=== PATIENT | male | born 1950 | race Caucasian/White ===

== ENCOUNTER 2018-03-31 23:28 | Inpatient (IN) | payer OTHER ==
[~2018-03-31] VITALS: Ht 172.7 cm; Wt 74.1 kg
[2018-04-01 00:28] LABS: BASOPHIL (%) 0.2 % (0-1); EOSINOPHIL (%) 0 % (0-5); HEMATOCRIT 34.2 % (38.0-50.0); IMMATURE GRANULOCYTE (%) 1.2 % (0.0-0.7); LYMPHOCYTE (%) 2.4 % (15-42); LYMPHOCYTE COUNT 0.5 K/uL (1.0-2.8); MCH 30.8 PG (29.0-34.0); MCHC 35.1 G/DL (30.0-36.0); MCV 87.9 FL (86-99); MONOCYTE (%) 9.1 % (3-12); MONOCYTE COUNT 1.7 K/uL (0-0.8); NEUTROPHIL (%) 87.1 % (45-76); NEUTROPHIL COUNT 16.6 K/uL (1.8-6.4); PLATELET COUNT 297 K/uL (156-360); RBC DIS.WIDTH-CV 12.4 % (11.8-14.6); RBC DIS.WIDTH-SD 39.8 % (39-53); RED BLOOD COUNT 3.89 M/uL (4.00-5.50)
[2018-04-01 00:56] LABS: TROP-I INTERPRETATION NEGATIVE; TROPONIN-I 0.03 ng/mL (0.0-0.30)
[2018-04-01 01:01] LABS: ALBUMIN 3.6 g/dL (3.2-4.8); CHLORIDE 99 mEq/L (99-109); POTASSIUM 3.6 mEq/L (3.7-5.4); SODIUM 132 mEq/L (136-147)
[2018-04-01 01:04] LABS: GLUCOSE 225 mg/dL (70-99); TOTAL PROTEIN 7.1 g/dL (6.4-8.3)
[2018-04-01 01:07] LABS: ALKALINE PHOSPHATASE 94 IU/L (3-129); CREATININE 1.5 mg/dL (0.6-1.3); GFR ESTIMATE (CALCULATED) 49 mL/min/ (58.99-99999)
[2018-04-01 01:08] LABS: UREA NITROGEN (BUN) 33 mg/dL (9-23)
[2018-04-01 01:09] LABS: AST (GOT) 31 IU/L (2-34); DIRECT BILIRUBIN 0.5 mg/dL (0.0-0.3)
[2018-04-01 01:10] LABS: ALT (GPT) 14 IU/L (3-49)
[2018-04-01 01:11] LABS: LIPASE 9 U/L (1.0-51.0)
[2018-04-01] MEDS ORDERED: METFORMIN HCL500 MG PO (01:56)
[2018-04-01] MEDS ORDERED: VASOTEC20 MG PO (01:57)
[2018-04-01] MEDS ORDERED: NORVASC5 MG PO (01:57)
[2018-04-01] MEDS ORDERED: TYLENOL ARTHRI650 MG PO (01:59)
[2018-04-01] MEDS ORDERED: SNAP INSULIN P1 EACH MC (02:00)
[2018-04-01 05:49] VITALS: BP 167/79
[2018-04-01 06:51] LABS: APPEARANCE CLOUDY ((CLEAR)); BILIRUBIN NEGATIVE; BLOOD LARGE; COLOR YELLOW ((YELLOW)); GLUCOSE (STRIP) NEGATIVE; KETONES NEGATIVE; LEUKOCYTES NEGATIVE; NITRITE NEGATIVE; PROTEIN (STRIP) 30; SPECIFIC GRAVITY 1.014 (1.000-1.030); UROBILINOGEN 0.2 MG/DL (0.2-1.0)
[2018-04-01 07:04] LABS: BACTERIA RARE /HPF; EPITHELIAL CELLS RARE /HPF; MUCUS TRACE /LPF; UCUL ADDED? NO; WHITE BLOOD CELLS 0-5 /HPF (0-5)
[2018-04-01 07:06] LABS: HEMATOCRIT 36.4 % (38.0-50.0); MCH 29.6 PG (29.0-34.0); MCV 89.9 FL (86-99); PLATELET COUNT 286 K/uL (156-360); RBC DIS.WIDTH-CV 12.3 % (11.8-14.6); RBC DIS.WIDTH-SD 40.4 % (39-53); RED BLOOD COUNT 4.05 M/uL (4.00-5.50); WHITE BLOOD COUNT 14.2 K/uL (4.1-10.2)
[2018-04-01 07:32] LABS: CHLORIDE 103 MEQ/L (99-109); CREATININE 1.4 MG/DL (0.6-1.3); GFR ESTIMATE (CALCULATED) 54 mL/min/ (58.99-99999); GLUCOSE 186 mg/dL (70-99); POTASSIUM 3.6 MEQ/L (3.7-5.4); SODIUM 135 MEQ/L (136-147); UREA NITROGEN (BUN) 28 mg/dL (9-23)
[2018-04-01 07:36] LABS: ABS NEUTROPHIL COUNT 13.6; BAND NEUTROPHILS 21.7 % (0-8.0); BURR CELLS 1+; EOSINOPHIL ABS CT 0; LYMPHOCYTES 0.9 % (15.0-45.0); MONOCYTES 3.5 % (0-9.0); PLAT.SUFFICIENCY ADEQUATE; POIKILOCYTOSIS 1+; SEG.NEUTROPHILS 73.9 % (46.0-76.0)
[2018-04-01 07:59] VITALS: BP 127/77
[2018-04-01 12:17] VITALS: BP 152/62
== END 2018-04-01 19:29 | disposition short-term general hospital (02) | DRG 559 ==
LOC: EME 23:28 → EDOF 04-01 03:40 → 4EAST 04-01 03:40 → ENRESERV 04-01 03:41 → 4EAST 04-01 05:15
PROVIDERS: Hospitalist
DX: T84.52XA Infection and inflammatory reaction due to internal left hip prosthesis, initial encounter (principal); A41.9 Sepsis, unspecified organism; J18.9 Pneumonia, unspecified organism; L03.116 Cellulitis of left lower limb; E87.1 Hypo-osmolality and hyponatremia; N17.9 Acute kidney failure, unspecified; J98.11 Atelectasis; R78.81 Bacteremia; E11.22 Type 2 diabetes mellitus with diabetic chronic kidney disease; I10 Essential (primary) hypertension; E86.0 Dehydration; Z96.642 Presence of left artificial hip joint; Y83.8 Other surgical procedures as the cause of abnormal reaction of the patient, or of later complication, without mention of misadventure at the time of the procedure; B95.62 Methicillin resistant Staphylococcus aureus infection as the cause of diseases classified elsewhere; S71.002A Unspecified open wound, left hip, initial encounter; R29.6 Repeated falls; I12.9 Hypertensive chronic kidney disease with stage 1 through stage 4 chronic kidney disease, or unspecified chronic kidney disease; N18.9 Chronic kidney disease, unspecified; M79.1 Myalgia; Y83.1 Surgical operation with implant of artificial internal device as the cause of abnormal reaction of the patient, or of later complication, without mention of misadventure at the time of the procedure; Z97.8 Presence of other specified devices; Z91.81 History of falling
CPT/HCPCS: 71046; 71250; 72192; 73502; 73552; 80048; 80048 91; 80076; 81003; 82948; 83605; 83690; 84484; 85025; 85025 91; 87040; 87070; 87075; 87077; 87086; 87147; 87186; 87205; 87449; 87801; 93005; 94799; 99202; 99281; 99285; J0456; J0692; J0696; J1650; J1815; J1956; J3370; J3480; J7030